=== PATIENT | female | born 2005 ===

== ENCOUNTER 2024-09-06 16:59 | Emergency (ER) | payer OTHER ==
[~2024-09-06] VITALS: Ht 167.6 cm; Wt 65.9 kg
[2024-09-06 17:10] VITALS: BP 111/55; PULSE 88; RESP 18; TEMP 98; O2SAT 100
[2024-09-06 17:36] LABS: COVID AG,FIA SOURCE NASAL SWAB
[2024-09-06 18:02] LABS: RAPID GROUP A STREP NEGATIVE (NEGATIVE)
[2024-09-06 18:09] LABS: SARS-COV2 (COVID) ANTIGEN,FIA Negative (Negative)
[2024-09-06 18:10] LABS: INFLUENZA TYPE A NEGATIVE FOR TYPE A (NEGATIVE); INFLUENZA TYPE B NEGATIVE FOR TYPE B (NEGATIVE)
== END 2024-09-06 18:26 | disposition left against medical advice (07) ==
LOC: EMS 16:59
DX: J02.9 Acute pharyngitis, unspecified (principal); Z20.822 Contact with and (suspected) exposure to COVID-19; Z53.21 Procedure and treatment not carried out due to patient leaving prior to being seen by health care provider
CPT/HCPCS: 87430; 87804